=== PATIENT | female | born 1970 | race American Indian/Alaskan Native ===

== ENCOUNTER 2020-05-20 02:46 | Emergency (ER) | payer OTHER ==
[2020-05-20] MEDS ORDERED: SODIUM CHLORIDE 0.9% 1000 ML 1,000 ML IV ONE (03:13)
--- NOTE | 2020-05-20 03:43 | XRay Report ---
CHEST 1 VIEW 0330 INDICATION / CLINICAL INFORMATION: Syncope COMPARISON: 06/07/2010 FINDINGS: SUPPORT DEVICES: None HEART / MEDIASTINUM: No significant abnormality. LUNGS / PLEURA: No significant pulmonary or pleural abnormality. No pneumothorax. ADDITIONAL FINDINGS: No significant additional findings. IMPRESSION: No significant acute abnormality Signer Name: Pravin Pavon MD Signed: 05/20/2020 3:38 AM Workstation Name: [id number]
[2020-05-20 04:16] LABS: Basophils % (Auto) 0.3 % (0.0-1.8); Eosinophils # (Auto) 0.2 K/mm3 (0.0-0.4); Eosinophils % (Auto) 2.4 % (0.0-4.3); Hematocrit 39.7 % (30.3-42.9); Hemoglobin 13.2 gm/dl (10.1-14.3); Lymphocytes # (Auto) 1.5 K/mm3 (1.2-5.4); Lymphocytes % (Auto) 15.3 % (13.4-35.0); Mean Corpuscular HGB Conc 33 % (30-34); Mean Corpuscular Volume 90 fl (79-97); Monocytes # (Auto) 0.9 K/mm3 (0.0-0.8); Monocytes % (Auto) 8.9 % (0.0-7.3); Platelet Count 317 K/mm3 (140-440); Red Cell Distribution Width 13.9 % (13.2-15.2)
[2020-05-20 04:27] LABS: INR 0.85 (0.87-1.13)
--- NOTE | 2020-05-20 04:42 | Cat Scan Report ---
CT HEAD WITHOUT CONTRAST INDICATION: Syncopal episode TECHNIQUE: All CT scans at this location are performed using CT dose reduction for ALARA by means of automated exposure control. COMPARISON: None available. FINDINGS: BRAIN: No hemorrhage or mass effect are seen. No evidence of acute infarction is noted. ORBITS: Normal as visualized. SOFT TISSUES OF HEAD: Normal. CALVARIUM: Normal. VISUALIZED PARANASAL SINUSES AND MASTOID AIR CELLS: Clear. ADDITIONAL FINDINGS: None. IMPRESSION: No acute intracranial abnormality. Signer Name: Pravin Pavon MD Signed: 05/20/2020 4:38 AM Workstation Name: [id number]
[2020-05-20 04:51] LABS: Alanine Aminotransferase 11 units/L (7-56); Albumin 4.1 g/dL (3.9-5); BUN/Creatinine Ratio 16; Blood Urea Nitrogen 14 mg/dL (7-17); Calcium 9.5 mg/dL (8.4-10.2); Creatine Kinase MB 1.1 ng/mL (0.0-4.0); Hemolysis Index 7
--- NOTE | 2020-05-20 05:13 | Emergency Department Report ---
ED Syncope HPI - General Chief Complaint: Syncope Stated Complaint: SYNCOPAL EPISODE Time Seen by Provider: 05/20/20 03:13 Source: EMS Exam Limitations: no limitations - History of Present Illness Initial Comments: Patient woke up from sleep, went to get some water in her fridge, then had an episode of loss of consciousness, brief, less than 5 seconds. No chest pain, sob, diaphoresis, fever, chills or night sweats. Timing/Prior Episodes: no prior history, single episode today Precipitating Factors: Positive: none Context: standing Loss of Consciousness: brief (seconds) Current Symptoms: back to normal - Related Data Allergies/Adverse Reactions: Allergies No Known Allergies Allergy (Unverified 06/07/13 00:04) Home Medications: Ambulatory Orders Levothyroxine (Nf) [Synthroid] 200 mcg PO QAM 06/07/13 HYDROcodone/APAP 5-325 [[place] 5/325] 1 each PO Q6HR PRN #14 tablet 02/14/14 ED Review of Systems ROS: Stated complaint: SYNCOPAL EPISODE Other details as noted in HPI Constitutional: denies: chills, fever Eyes: denies: eye pain, eye discharge, vision change ENT: denies: ear pain, throat pain Respiratory: denies: cough, shortness of breath, wheezing Cardiovascular: denies: chest pain, palpitations Endocrine: no symptoms reported Gastrointestinal: denies: abdominal pain, nausea, diarrhea Genitourinary: denies: urgency, dysuria, discharge Musculoskeletal: denies: back pain, joint swelling, arthralgia Skin: denies: rash, lesions Neurological: denies: headache, weakness, paresthesias Psychiatric: denies: anxiety, depression Hematological/Lymphatic: denies: easy bleeding, easy bruising ED Past Medical Hx - Past Medical History Hx Hypertension: Yes Hx Asthma: Yes Additional medical history: hypothyroidism - Surgical History Hx Appendectomy: Yes Additional Surgical History: thyroidectomy - Social History Smoking Status: Unknown if ever smoked Substance Use Type: None - Medications Home Medications: Home Medications Medication Instructions Recorded Confirmed Last Taken Type Levothyroxine (Nf) [Synthroid] 200 mcg PO QAM 06/07/13 02/14/14 02/14/14 07:00 History HYDROcodone/APAP 5-325 [[place] 1 each PO Q6HR PRN #14 tablet 09/27/14 Unknown Rx 5/325] ED Physical Exam - General Limitations: No Limitations General appearance: alert, in no apparent distress - Head Head exam: Present: atraumatic, normocephalic - Eye Eye exam: Present: normal appearance - ENT ENT exam: Present: mucous membranes moist - Neck Neck exam: Present: normal inspection - Respiratory Respiratory exam: Present: normal lung sounds bilaterally. Absent: respiratory distress - Cardiovascular Cardiovascular Exam: Present: regular rate, normal rhythm. Absent: systolic murmur, diastolic murmur, rubs, gallop - GI/Abdominal GI/Abdominal exam: Present: soft, normal bowel sounds - Extremities Exam Extremities exam: Present: normal inspection - Back Exam Back exam: Present: normal inspection - Neurological Exam Neurological exam: Present: alert, oriented X3 - Psychiatric Psychiatric exam: Present: normal affect, normal mood - Skin Skin exam: Present: warm, dry, intact, normal color. Absent: rash ED Course Vital Signs 05/20/20 05/20/20 05/20/20 02:56 03:08 03:15 Temperature 97.7 F Pulse Rate 72 72 72 Respiratory 20 14 12 Rate Blood Pressure 121/74 Blood Pressure 121/74 [Left] O2 Sat by Pulse 98 97 98 Oximetry 05/20/20 05/20/20 03:26 03:32 Temperature 97.7 F Pulse Rate 72 Respiratory 20 20 Rate Blood Pressure 121/74 Blood Pressure [Left] O2 Sat by Pulse 98 Oximetry ED Medical Decision Making - Lab Data Result diagrams: 05/20/20 03:40 05/20/20 03:40 - EKG Data -: EKG Interpreted by [facility] EKG shows normal: sinus rhythm Rate: normal - EKG Data When compared to previous EKG there are: no significant change Interpretation: no acute changes - Radiology Data Radiology results: report reviewed - Medical Decision Making Presents with syncope, had CBC, chemistry, CT head and chest x-ray which were essentially normal. Back to baseline, will DC home follow-up with PCP. Event likely vasovagal related. Orthostatics within normal limits, patient did receive 1 L IV fluid in ED, states she felt much better afterwards. - Differential Diagnosis Syncope, seizures, Critical care attestation.: If time is entered above; I have spent that time in minutes in the direct care of this critically ill patient, excluding procedure time. ED Disposition Clinical Impression: Syncope Qualifiers: Syncope type: vasovagal syncope Qualified Code(s): R55 - Syncope and collapse Disposition: DC-01 TO HOME OR SELFCARE Is pt being admited?: No Does the pt Need Aspirin: No Condition: Stable Instructions: Syncope (ED) Referrals: PRIMARY CARE, [Primary Care Provider] - 3-5 Days
[2020-05-20 05:57] VITALS: BP 134/88
== END 2020-05-20 06:00 | disposition home or self-care (01) ==
LOC: ED 02:46
DX: R55 Syncope and collapse (principal); I10 Essential (primary) hypertension; J45.909 Unspecified asthma, uncomplicated; Z98.890 Other specified postprocedural states; Z79.899 Other long term (current) drug therapy
CPT/HCPCS: 36415; 70450; 71045; 80053; 82550; 82553; 83735; 84484; 85025; 85379; 85610; 93005; 96360; 99285; J7030